=== PATIENT | male | born 1935 | race Caucasian/White ===

== ENCOUNTER 2017-03-29 11:07 | Emergency (ER) | payer OTHER ==
[~2017-03-29] VITALS: Ht 165.1 cm; Wt 91.1 kg
[2017-03-29 11:17] VITALS: BP 140/81
[2017-03-29 12:10] LABS: Basophils # (auto) 0 uL; Basophils % (auto) 0.2 % (0.0-2.0); Eosinophils # (auto) 0.2 uL; Hematocrit 38.6 % (41.0-53.0); Lymphocytes % (auto) 25.2 % (10.0-50.0); Mean Corpuscular Hemoglobin 29.1 pg (28.0-32.0); Mean Corpuscular Hgb Conc. 33.5 g/dL (32.0-36.0); Mean Corpuscular Volume 86.9 fL (80.0-100.0); Monocytes # (auto) 1.1 uL; Monocytes % (auto) 13.2 % (0.0-12.0); Neutrophils # (auto) 4.8 uL; Neutrophils % (auto) 59.4 % (37.0-80.0); Platelet Count (auto) 176 10^3/uL (140-450); Red Blood Cells 4.45 10^6/uL (4.5-5.90); Red Cell Distribution Width 13.4 % (11.8-14.3); White Blood Cell 8.1 10^3/uL (4.4-10.8)
[2017-03-29 12:24] LABS: INR 0.96 (0.9-1.15); Partial Thromboplastin Time 28.9 sec (22.64-33.71); Prothrombin Time 10.5 sec (9.37-12.3)
[2017-03-29 12:34] LABS: Alanine Aminotransferase 21 U/L (16-61); Albumin 3.3 g/dL (3.4-5.0); Anion Gap 5 (5-15); Aspartate Aminotransferase 16 U/L (15-37); BUN/Creatinine Ratio 12.8; Blood Urea Nitrogen 15 mg/dL (7-18); Calcium 9.2 mg/dL (8.5-10.1); Carbon Dioxide 31 mmol/L (21-32); Chloride 101 mmol/L (98-107); GFR African American 77 mL/min; GFR Non-African American 63 mL/min; Glucose 216 mg/dL (74-106); Potassium 4.8 mmol/L (3.5-5.1); Sodium 137 mmol/L (136-145)
[2017-03-29 12:38] LABS: Alkaline Phosphatase 94 U/L (45-117); Bilirubin, Total 0.6 mg/dL (0.2-1.0); Total Protein 7.5 g/dL (6.4-8.2)
== END 2017-03-29 16:33 | disposition left against medical advice (07) ==
LOC: ER 11:07
DX: M79.89 Other specified soft tissue disorders (principal); R06.02 Shortness of breath; Z53.21 Procedure and treatment not carried out due to patient leaving prior to being seen by health care provider
CPT/HCPCS: 36415; 71020; 80053; 82962; 83880; 84484; 85025; 85610; 85730; 93005